=== PATIENT | male | born 1935 | race African-American/Black ===

== ENCOUNTER 2017-02-07 12:40 | Observation (INO) | payer MEDICARE, OTHER ==
[~2017-02-07] VITALS: Ht 185.4 cm; Wt 81.6 kg
[~2017-02-07 12:40] MED LIST: AMIO200T33 PO; AMLO5TAB2 PO; ASPI1TAB59 PO; BRIM0.159 LEFTEYE; CARV3.1240 PO; CLON0.1T PO; MONT10TA23 PO; SIMV-8 PO; TRAV0.00; [UNRECOGNIZED DRUG - CODE] PO
[2017-02-07] MEDS ORDERED: SODIUM CHLORIDE 0.9% 1,000 ML IVB ONE (13:22)
[2017-02-07] MEDS ORDERED: PANTOPRAZOLE SODIUM 40 MG/10 ML VIAL IV STA (13:22)
[2017-02-07] MEDS ORDERED: ONDANSETRON HCL 4 MG/2 ML VIAL IV ONE (13:30)
[2017-02-07] MEDS ORDERED: HYDROmorphone HCL 2 MG/ML VL IV ONE (13:30)
[2017-02-07 14:02] VITALS: BP 125/65
[2017-02-07 14:08] LABS: Basophils # (auto) 0 uL; Basophils % (auto) 0.3 % (0.0-2.0); CONDITION Y; Eosinophils # (auto) 0.4 uL; Eosinophils % (auto) 3.2 % (0.0-7.0); Hematocrit 30.3 % (41.0-53.0); Hemoglobin 10.2 g/dL (13.5-17.5); Lymphocytes # (auto) 1.4 uL; Lymphocytes % (auto) 12.4 % (10.0-50.0); Mean Corpuscular Hemoglobin 28.8 pg (28.0-32.0); Mean Corpuscular Hgb Conc. 33.8 g/dL (32.0-36.0); Mean Corpuscular Volume 85.3 fL (80.0-100.0); Mean Platelet Volume 7.3 fL (7.4-10.4); Monocytes # (auto) 0.8 uL; Monocytes % (auto) 7.2 % (0.0-12.0); Neutrophils # (auto) 8.6 uL; Neutrophils % (auto) 76.9 % (37.0-80.0); Platelet Count (auto) 329 10^3/uL (140-450); Red Cell Distribution Width 17.5 % (11.6-16.0); SUSPECT SEE PRINTOUT; White Blood Cell 11.1 10^3/uL (4.4-10.8)
[2017-02-07 14:40] LABS: Albumin 2.8 g/dL (3.4-5.0); BUN/Creatinine Ratio 20.8; Bilirubin, Total 0.6 mg/dL (0.2-1.0); Calcium 10.2 mg/dL (8.5-10.1); Magnesium 2.7 mg/dL (1.6-2.6); Potassium 4.4 mmol/L (3.5-5.1); Total Protein 7.2 g/dL (6.4-8.2)
== END 2017-02-07 17:24 | disposition home or self-care (01) | DRG 690 ==
LOC: EDBD 12:40 → ER 12:52 → OVERFLOW 13:24 → ER 17:24
PROVIDERS: ADMIT Family Medicine; ATTEND Family Medicine
DX: N39.0 Urinary tract infection, site not specified (principal); I13.0 Hypertensive heart and chronic kidney disease with heart failure and stage 1 through stage 4 chronic kidney disease, or unspecified chronic kidney disease; I50.9 Heart failure, unspecified; N18.9 Chronic kidney disease, unspecified; Z95.1 Presence of aortocoronary bypass graft; M51.36 Other intervertebral disc degeneration, lumbar region; Z93.1 Gastrostomy status; I25.2 Old myocardial infarction
CPT/HCPCS: 36415; 74176; 80053; 82150; 83690; 83735; 85025; 96361; 96374; 96375; 99281; C9113; G0378; J1170; J2405; J7030

== ENCOUNTER → 2017-06-03 | Outpatient (CLI) | payer MEDICARE, OTHER ==
[2017-06-03 10:09] LABS: Basophils # (auto) 0 uL; Basophils % (auto) 0.5 % (0.0-2.0); Eosinophils # (auto) 0.3 uL; Hematocrit 35.3 % (41.0-53.0); Hemoglobin 11.7 g/dL (13.5-17.5); Lymphocytes # (auto) 1.7 uL; Mean Corpuscular Hemoglobin 28.7 pg (28.0-32.0); Mean Corpuscular Hgb Conc. 33.2 g/dL (32.0-36.0); Mean Corpuscular Volume 86.4 fL (80.0-100.0); Monocytes # (auto) 0.4 uL; Monocytes % (auto) 6.4 % (0.0-12.0); Neutrophils # (auto) 3.2 uL; Neutrophils % (auto) 58.1 % (37.0-80.0); Nucleated Red Blood Cells % 0.1 %; Platelet Count (auto) 177 10^3/uL (140-450); Red Cell Distribution Width 14.2 % (11.8-14.3); White Blood Cell 5.5 10^3/uL (4.4-10.8)
[2017-06-03 10:46] LABS: Urine Bilirubin Negative (Negative); Urine Blood Negative /uL (Negative); Urine Color Yellow (Yellow); Urine Glucose Normal (Normal); Urine Ketone Negative (Negative); Urine Nitrite POSITIVE (Negative); Urine RBC 7 /hpf (0 - 3); Urine Urobilinogen Normal (Negative); Urine pH 5.5 (5.0-8.0)
[2017-06-03 11:11] LABS: Temperature: 24.1 C (20.0-25.0)
[2017-06-03 11:17] LABS: Albumin 3.5 g/dL (3.4-5.0); Bilirubin, Total 0.9 mg/dL (0.2-1.0); Calcium 9.4 mg/dL (8.5-10.1); Potassium 4.2 mmol/L (3.5-5.1); Total Protein 7.4 g/dL (6.4-8.2)
== END | disposition home or self-care (01) ==
LOC: LAB 09:14
PROVIDERS: ATTEND Nurse Practitioner
DX: I13.0 Hypertensive heart and chronic kidney disease with heart failure and stage 1 through stage 4 chronic kidney disease, or unspecified chronic kidney disease (principal); N18.9 Chronic kidney disease, unspecified; I50.9 Heart failure, unspecified; Z95.1 Presence of aortocoronary bypass graft; Z79.899 Other long term (current) drug therapy
CPT/HCPCS: 36415; 80053; 80061; 81001; 82306; 82607; 82746; 83036; 84443; 85025

== ENCOUNTER → 2017-08-14 | Outpatient (CLI) | payer MEDICARE, OTHER ==
[2017-08-14 09:43] LABS: Albumin 4.2 g/dL (3.4-5.0); BUN/Creatinine Ratio 24.7; Bilirubin, Total 0.6 mg/dL (0.2-1.0); Calcium 9.9 mg/dL (8.5-10.1); Potassium 4.6 mmol/L (3.5-5.1); Total Protein 7.6 g/dL (6.4-8.2)
== END | disposition home or self-care (01) ==
LOC: LAB 08:50
PROVIDERS: ATTEND Internal Medicine Cardiovascular Disease
DX: I13.0 Hypertensive heart and chronic kidney disease with heart failure and stage 1 through stage 4 chronic kidney disease, or unspecified chronic kidney disease (principal); N18.9 Chronic kidney disease, unspecified; I50.9 Heart failure, unspecified
CPT/HCPCS: 36415; 80053

== ENCOUNTER → 2017-08-21 | Outpatient (CLI) | payer MEDICARE, OTHER ==
[2017-08-21 15:53] LABS: BUN/Creatinine Ratio 22.8; Calcium 9.6 mg/dL (8.5-10.1); Potassium 4.3 mmol/L (3.5-5.1)
== END | disposition home or self-care (01) ==
LOC: LAB 14:03
PROVIDERS: ATTEND Internal Medicine Cardiovascular Disease
DX: I25.10 Atherosclerotic heart disease of native coronary artery without angina pectoris (principal); I50.22 Chronic systolic (congestive) heart failure
CPT/HCPCS: 36415; 80048

== ENCOUNTER → 2018-01-01 | Outpatient (CLI) | payer MEDICARE, OTHER ==
[2018-01-01 08:47] LABS: BUN/Creatinine Ratio 17.9; Calcium 9.3 mg/dL (8.5-10.1); Potassium 4.9 mmol/L (3.5-5.1)
== END | disposition home or self-care (01) ==
LOC: LAB 07:44
PROVIDERS: ATTEND Internal Medicine Cardiovascular Disease
DX: I25.10 Atherosclerotic heart disease of native coronary artery without angina pectoris (principal); I13.0 Hypertensive heart and chronic kidney disease with heart failure and stage 1 through stage 4 chronic kidney disease, or unspecified chronic kidney disease; N18.9 Chronic kidney disease, unspecified; I50.22 Chronic systolic (congestive) heart failure
CPT/HCPCS: 36415; 80048; 83880

== ENCOUNTER → 2018-01-26 | Outpatient (CLI) | payer MEDICARE, OTHER ==
[2018-01-26 14:05] LABS: Basophils # (auto) 0 uL; Basophils % (auto) 0.4 % (0.0-2.0); Eosinophils # (auto) 0.2 uL; Eosinophils % (auto) 2.7 % (0.0-7.0); Hematocrit 36.3 % (41.0-53.0); Hemoglobin 12.1 g/dL (13.5-17.5); Lymphocytes # (auto) 2.4 uL; Lymphocytes % (auto) 39.3 % (10.0-50.0); Mean Corpuscular Hemoglobin 29.5 pg (28.0-32.0); Mean Corpuscular Hgb Conc. 33.4 g/dL (32.0-36.0); Mean Corpuscular Volume 88.3 fL (80.0-100.0); Monocytes # (auto) 0.4 uL; Monocytes % (auto) 6.8 % (0.0-12.0); Neutrophils # (auto) 3.1 uL; Neutrophils % (auto) 50.8 % (37.0-80.0); Nucleated Red Blood Cells % 0.2 %; Platelet Count (auto) 150 10^3/uL (140-450); Red Blood Cells 4.11 10^6/uL (4.5-5.90); Red Cell Distribution Width 14.4 % (11.8-14.3); White Blood Cell 6.2 10^3/uL (4.4-10.8)
[2018-01-26 15:14] LABS: BUN/Creatinine Ratio 19.2; Calcium 9.2 mg/dL (8.5-10.1); Potassium 4.6 mmol/L (3.5-5.1)
== END | disposition home or self-care (01) ==
LOC: LAB 13:48
PROVIDERS: ATTEND Family Medicine
DX: N17.9 Acute kidney failure, unspecified (principal)
CPT/HCPCS: 36415; 80048; 84075; 85025

== ENCOUNTER → 2018-04-06 | Outpatient (CLI) | payer MEDICARE, OTHER ==
[2018-04-06 11:18] LABS: Basophils # (auto) 0 uL; Basophils % (auto) 0.6 % (0.0-2.0); Eosinophils # (auto) 0.2 uL; Eosinophils % (auto) 3.4 % (0.0-7.0); Hematocrit 36.8 % (41.0-53.0); Hemoglobin 12.4 g/dL (13.5-17.5); Lymphocytes # (auto) 2.3 uL; Lymphocytes % (auto) 44.4 % (10.0-50.0); Mean Corpuscular Hemoglobin 28.9 pg (28.0-32.0); Mean Corpuscular Hgb Conc. 33.6 g/dL (32.0-36.0); Monocytes # (auto) 0.3 uL; Monocytes % (auto) 6.2 % (0.0-12.0); Neutrophils # (auto) 2.3 uL; Neutrophils % (auto) 45.4 % (37.0-80.0); Nucleated Red Blood Cells % 0.1 %; Platelet Count (auto) 163 10^3/uL (140-450); Red Blood Cells 4.28 10^6/uL (4.5-5.90); Red Cell Distribution Width 15.8 % (11.8-14.3); White Blood Cell 5.1 10^3/uL (4.4-10.8)
[2018-04-06 11:32] LABS: Urine Bacteria NONE SEEN /hpf (None Seen); Urine Blood Negative /uL (Negative); Urine Mucus FEW (None Seen); Urine WBC 19 /hpf (0 - 3)
[2018-04-06 13:01] LABS: Albumin 3.7 g/dL (3.4-5.0); BUN/Creatinine Ratio 23.9; Bilirubin, Total 0.6 mg/dL (0.2-1.0); Calcium 9.3 mg/dL (8.5-10.1); Potassium 4.6 mmol/L (3.5-5.1); Total Protein 7.2 g/dL (6.4-8.2)
== END | disposition home or self-care (01) ==
LOC: LAB 09:54
PROVIDERS: ATTEND Nurse Practitioner
DX: E78.5 Hyperlipidemia, unspecified (principal); J18.9 Pneumonia, unspecified organism; I13.0 Hypertensive heart and chronic kidney disease with heart failure and stage 1 through stage 4 chronic kidney disease, or unspecified chronic kidney disease; N18.3 Chronic kidney disease, stage 3 (moderate); I50.9 Heart failure, unspecified; E78.00 Pure hypercholesterolemia, unspecified; Z79.82 Long term (current) use of aspirin; Z79.899 Other long term (current) drug therapy
CPT/HCPCS: 36415; 80053; 81001; 85025

== ENCOUNTER 2018-06-25 04:39 | Inpatient (IN) | payer MEDICARE, OTHER ==
[~2018-06-25] VITALS: Ht 167.6 cm; Wt 98.0 kg
[~2018-06-25 04:39] MED LIST changes: +AMLO5TAB13 PO; -AMLO5TAB2 PO
[2018-06-25 05:36] LABS: Basophils # (auto) 0 uL; Basophils % (auto) 0.2 % (0.0-2.0); Eosinophils # (auto) 0.1 uL; Eosinophils % (auto) 1.2 % (0.0-7.0); Hematocrit 37.3 % (41.0-53.0); Hemoglobin 12.5 g/dL (13.5-17.5); Lymphocytes # (auto) 1.2 uL; Lymphocytes % (auto) 20.5 % (10.0-50.0); Mean Corpuscular Hemoglobin 29.3 pg (28.0-32.0); Mean Corpuscular Hgb Conc. 33.6 g/dL (32.0-36.0); Mean Corpuscular Volume 87.3 fL (80.0-100.0); Monocytes # (auto) 0.3 uL; Monocytes % (auto) 5.5 % (0.0-12.0); Neutrophils # (auto) 4.2 uL; Neutrophils % (auto) 72.6 % (37.0-80.0); Platelet Count (auto) 129 10^3/uL (140-450); Red Blood Cells 4.27 10^6/uL (4.5-5.90); Red Cell Distribution Width 13.9 % (11.8-14.3); White Blood Cell 5.8 10^3/uL (4.4-10.8)
[2018-06-25 05:52] LABS: Alanine Aminotransferase 125 U/L (16-61); Albumin 3.8 g/dL (3.4-5.0); Anion Gap 9 (5-15); Aspartate Aminotransferase 156 U/L (15-37); BUN/Creatinine Ratio 18.4; Blood Urea Nitrogen 26 mg/dL (7-18); Calcium 9.2 mg/dL (8.5-10.1); Carbon Dioxide 26 mmol/L (21-32); Chloride 107 mmol/L (98-107); GFR African American 62 mL/min; GFR Non-African American 51 mL/min; Glucose 93 mg/dL (74-106); Magnesium 2.5 mg/dL (1.6-2.6); Potassium 4.2 mmol/L (3.5-5.1); Sodium 142 mmol/L (136-145)
[2018-06-25 06:02] LABS: Alkaline Phosphatase 143 U/L (45-117); Bilirubin, Total 1.6 mg/dL (0.2-1.0); Lipase 13301 U/L (73-393); Total Protein 7.1 g/dL (6.4-8.2)
[2018-06-25 07:34] LABS: Urine Bacteria NONE SEEN /hpf (None Seen); Urine Blood Negative /uL (Negative); Urine Mucus FEW (None Seen); Urine WBC 88 /hpf (0 - 3)
[2018-06-25] MEDS ORDERED: LEVOFLOXACIN 500MG 100 ML IV ONE (07:45)
[2018-06-25] MEDS ORDERED: NITROGLYCERIN 0.4 MG SL TAB SL PRN (08:15)
[2018-06-25] MEDS ORDERED: PANTOPRAZOLE 40 MG/10 ML VIAL IV ONE (08:15)
[2018-06-25] MEDS ORDERED: MORPHINE SULFATE 4 MG/ML SYR/VIAL IV PRN (08:15)
[2018-06-25] MEDS: SODIUM CHLORIDE 0.9% 1,000 ML IV SCH ×3 (08:38→22:00)
[2018-06-25] MEDS ORDERED: cefTRIAXone 1GM/50ML D5W 50 ML IV ONE (09:45)
[2018-06-25] MEDS ORDERED: LEVOFLOXACIN 500MG 100 ML IV SCH (10:00)
[2018-06-25 10:55] VITALS: BP 150/72
[2018-06-25] MEDS: PANTOPRAZOLE 40 MG/10 ML VIAL IV SCH (12:18)
[2018-06-25] MEDS: metroNIDAZOLE 500MG/100ML 100 ML IV SCH ×2 (13:36→21:50)
[2018-06-25] MEDS ORDERED: amLODIPine BESYLATE 5 MG TAB PO ONE (14:15)
[2018-06-25 15:03] LABS: INR 1.03 (0.9-1.15)
[2018-06-25] MEDS ORDERED: ESOM40CA39 PO (15:28)
[2018-06-25 17:11] VITALS: BP 145/75
[2018-06-25] MEDS: amLODIPine BESYLATE 5 MG TAB PO SCH (21:52)
[2018-06-25 22:00] VITALS: BP 136/74
[2018-06-26] MEDS: SODIUM CHLORIDE 0.9% 1,000 ML IV SCH ×2 (04:07→11:22)
[2018-06-26 05:00] VITALS: BP 111/47
[2018-06-26] MEDS: metroNIDAZOLE 500MG/100ML 100 ML IV SCH ×3 (05:54→21:52)
[2018-06-26 06:10] LABS: Potassium 4.1 mmol/L (3.5-5.1)
[2018-06-26 06:19] LABS: Basophils # (auto) 0 uL; Basophils % (auto) 0.4 % (0.0-2.0); Eosinophils # (auto) 0.1 uL; Eosinophils % (auto) 2.7 % (0.0-7.0); Hematocrit 36.8 % (41.0-53.0); Hemoglobin 12.5 g/dL (13.5-17.5); Lymphocytes # (auto) 1.7 uL; Lymphocytes % (auto) 30.7 % (10.0-50.0); Mean Corpuscular Hemoglobin 29.7 pg (28.0-32.0); Mean Corpuscular Hgb Conc. 33.9 g/dL (32.0-36.0); Mean Corpuscular Volume 87.6 fL (80.0-100.0); Monocytes # (auto) 0.3 uL; Neutrophils # (auto) 3.3 uL; Neutrophils % (auto) 60.2 % (37.0-80.0); Nucleated Red Blood Cells % 0.1 %; Platelet Count (auto) 120 10^3/uL (140-450); Red Cell Distribution Width 14.4 % (11.8-14.3); White Blood Cell 5.4 10^3/uL (4.4-10.8)
[2018-06-26 06:27] LABS: Albumin 3.4 g/dL (3.4-5.0); BUN/Creatinine Ratio 15.4
[2018-06-26 06:31] LABS: Bilirubin, Total 0.9 mg/dL (0.2-1.0); Total Protein 6.6 g/dL (6.4-8.2)
[2018-06-26 07:13] LABS: Cholesterol 110 mg/dL (< 200); Triglycerides 121 mg/dL (< 150)
[2018-06-26 07:16] LABS: HDL Cholesterol 38 mg/dL (40-59); LDL Cholesterol 63 mg/dL (< 100)
[2018-06-26 08:30] VITALS: BP 146/73
[2018-06-26 08:44] VITALS: BP 146/73
[2018-06-26] MEDS: PANTOPRAZOLE 40 MG/10 ML VIAL IV SCH (10:08)
[2018-06-26] MEDS: cefTRIAXone 1GM/50ML D5W 50 ML IV SCH (10:08)
[2018-06-26] MEDS: amLODIPine BESYLATE 5 MG TAB PO SCH (10:09)
[2018-06-26] MEDS ORDERED: ONDANSETRON HCL 4 MG/2 ML VIAL IV PRN (11:00)
[2018-06-26] MEDS ORDERED: SACUBITRIL-VALSARTAN 24mg/26mg TAB PO ONE (11:00)
[2018-06-26] MEDS ORDERED: MORPHINE SULFATE 4 MG/ML SYR/VIAL IV PRN (11:00)
[2018-06-26] MEDS ORDERED: HYDROcodone-ACET 5/325MG TAB PO PRN (11:00)
[2018-06-26] MEDS ORDERED: CARVEDILOL 3.125 MG TAB PO ONE (11:15)
[2018-06-26 13:07] VITALS: BP 159/60
[2018-06-26 17:00] VITALS: BP 135/75
[2018-06-26] MEDS: CARVEDILOL 3.125 MG TAB PO SCH (21:53)
[2018-06-26] MEDS: SACUBITRIL-VALSARTAN 24mg/26mg TAB PO SCH (21:55)
[2018-06-26 22:00] VITALS: BP 129/61
[2018-06-27 05:00] VITALS: BP 133/61
[2018-06-27] MEDS: SODIUM CHLORIDE 0.9% 1,000 ML IV SCH ×2 (05:31→15:29)
[2018-06-27] MEDS: metroNIDAZOLE 500MG/100ML 100 ML IV SCH ×3 (05:32→22:41)
[2018-06-27 05:50] LABS: Basophils # (auto) 0 uL; Basophils % (auto) 0.4 % (0.0-2.0); Eosinophils # (auto) 0.2 uL; Eosinophils % (auto) 5.1 % (0.0-7.0); Hematocrit 35.2 % (41.0-53.0); Hemoglobin 11.9 g/dL (13.5-17.5); Lymphocytes # (auto) 1.3 uL; Lymphocytes % (auto) 29.5 % (10.0-50.0); Mean Corpuscular Hemoglobin 29.5 pg (28.0-32.0); Mean Corpuscular Hgb Conc. 33.8 g/dL (32.0-36.0); Mean Corpuscular Volume 87.4 fL (80.0-100.0); Monocytes # (auto) 0.3 uL; Monocytes % (auto) 7.2 % (0.0-12.0); Neutrophils # (auto) 2.5 uL; Neutrophils % (auto) 57.8 % (37.0-80.0); Nucleated Red Blood Cells % 0.1 %; Platelet Count (auto) 127 10^3/uL (140-450); Red Blood Cells 4.03 10^6/uL (4.5-5.90); Red Cell Distribution Width 14.2 % (11.8-14.3); White Blood Cell 4.3 10^3/uL (4.4-10.8)
[2018-06-27 06:07] LABS: Potassium 3.9 mmol/L (3.5-5.1)
[2018-06-27 06:13] LABS: Albumin 3.3 g/dL (3.4-5.0); Bilirubin, Total 0.8 mg/dL (0.2-1.0); Calcium 8.8 mg/dL (8.5-10.1); Total Protein 6.3 g/dL (6.4-8.2)
[2018-06-27 08:19] VITALS: BP 134/74
[2018-06-27] MEDS: CARVEDILOL 3.125 MG TAB PO SCH ×3 (09:12→22:41)
[2018-06-27] MEDS: PANTOPRAZOLE 40 MG/10 ML VIAL IV SCH (09:12)
[2018-06-27] MEDS: SACUBITRIL-VALSARTAN 24mg/26mg TAB PO SCH ×2 (09:12→22:40)
[2018-06-27] MEDS: cefTRIAXone 1GM/50ML D5W 50 ML IV SCH (09:12)
[2018-06-27] MEDS ORDERED: MAGNESIUM OXIDE 400 MG TAB PO ONE (11:15)
[2018-06-27 12:11] VITALS: BP 136/67
[2018-06-27 16:51] VITALS: BP 148/78
[2018-06-27 21:58] VITALS: BP 153/63
[2018-06-28] MEDS: SODIUM CHLORIDE 0.9% 1,000 ML IV SCH ×2 (03:00→16:44)
[2018-06-28 04:55] VITALS: BP 156/61
[2018-06-28] MEDS: metroNIDAZOLE 500MG/100ML 100 ML IV SCH ×3 (05:44→21:53)
[2018-06-28 06:29] LABS: Potassium 3.7 mmol/L (3.5-5.1)
[2018-06-28 06:36] LABS: Albumin 3.4 g/dL (3.4-5.0); BUN/Creatinine Ratio 9.5; Bilirubin, Total 0.8 mg/dL (0.2-1.0); Calcium 8.8 mg/dL (8.5-10.1); Total Protein 6.6 g/dL (6.4-8.2)
[2018-06-28 08:24] VITALS: BP 154/49
[2018-06-28] MEDS: PANTOPRAZOLE 40 MG/10 ML VIAL IV SCH (09:54)
[2018-06-28] MEDS: cefTRIAXone 1GM/50ML D5W 50 ML IV SCH (09:54)
[2018-06-28] MEDS: CARVEDILOL 3.125 MG TAB PO SCH ×2 (09:55→21:53)
[2018-06-28] MEDS: SACUBITRIL-VALSARTAN 24mg/26mg TAB PO SCH ×2 (09:56→21:52)
[2018-06-28] MEDS: MAGNESIUM OXIDE 400 MG TAB PO SCH (09:56)
[2018-06-28 12:06] VITALS: BP 152/69
[2018-06-28 16:49] VITALS: BP 121/69
[2018-06-28 21:59] VITALS: BP 144/84
[2018-06-29 05:00] VITALS: BP 146/56
[2018-06-29] MEDS: metroNIDAZOLE 500MG/100ML 100 ML IV SCH ×2 (05:47→14:00)
[2018-06-29] MEDS: SODIUM CHLORIDE 0.9% 1,000 ML IV SCH (05:48)
[2018-06-29 08:31] VITALS: BP 149/68
[2018-06-29] MEDS: SACUBITRIL-VALSARTAN 24mg/26mg TAB PO SCH (10:19)
[2018-06-29] MEDS: CARVEDILOL 3.125 MG TAB PO SCH (10:20)
[2018-06-29] MEDS: MAGNESIUM OXIDE 400 MG TAB PO SCH (10:20)
[2018-06-29] MEDS: PANTOPRAZOLE 40 MG/10 ML VIAL IV SCH (10:20)
[2018-06-29] MEDS: cefTRIAXone 1GM/50ML D5W 50 ML IV SCH (10:26)
[2018-06-29 12:11] VITALS: BP 138/64
[2018-06-29 15:32] VITALS: BP 138/64
[2018-06-29 16:44] VITALS: BP 138/85
== END 2018-06-29 17:02 | disposition left against medical advice (07) | DRG 444 ==
LOC: ER 04:39 → TELE 04:40 → TELE-EAST 10:40
PROVIDERS: ADMIT Internal Medicine; ATTEND Internal Medicine
DX: K80.20 Calculus of gallbladder without cholecystitis without obstruction (principal); K85.10 Biliary acute pancreatitis without necrosis or infection; I13.0 Hypertensive heart and chronic kidney disease with heart failure and stage 1 through stage 4 chronic kidney disease, or unspecified chronic kidney disease; I50.22 Chronic systolic (congestive) heart failure; N39.0 Urinary tract infection, site not specified; N18.3 Chronic kidney disease, stage 3 (moderate); D63.8 Anemia in other chronic diseases classified elsewhere; I48.0 Paroxysmal atrial fibrillation; I25.5 Ischemic cardiomyopathy; I25.10 Atherosclerotic heart disease of native coronary artery without angina pectoris; E78.5 Hyperlipidemia, unspecified; K21.9 Gastro-esophageal reflux disease without esophagitis; I35.0 Nonrheumatic aortic (valve) stenosis; Z96.653 Presence of artificial knee joint, bilateral; Z53.21 Procedure and treatment not carried out due to patient leaving prior to being seen by health care provider; R00.1 Bradycardia, unspecified; I44.0 Atrioventricular block, first degree; K57.30 Diverticulosis of large intestine without perforation or abscess without bleeding; Z82.49 Family history of ischemic heart disease and other diseases of the circulatory system; Z93.0 Tracheostomy status; I25.2 Old myocardial infarction; Z95.1 Presence of aortocoronary bypass graft; Z87.01 Personal history of pneumonia (recurrent); Z88.1 Allergy status to other antibiotic agents; Z88.0 Allergy status to penicillin; Z90.49 Acquired absence of other specified parts of digestive tract
CPT/HCPCS: 36415; 71045; 74176; 76705; 78226; 80053; 80061; 81001; 82150; 83605; 83690; 83735; 83880; 84484; 85025; 85379; 85610; 85730; 86850; 86900; 86901; 87040; 93005; 93306; 94761; 96365; 96367; 96375; 97163; C9113; G0378; J0696; J3490

== ENCOUNTER 2025-03-04 11:59 | Emergency (ER) | payer MEDICARE ==
[~2025-03-04] VITALS: Ht 172.7 cm; Wt 89.7 kg
[~2025-03-04 11:59] MED LIST changes: +AMLO1TAB22 PO; -AMLO5TAB13 PO; +ESOM40CA39 PO; -SIMV-8 PO; +SIMV20TA20 PO
--- NOTE | 2025-03-04 13:44 | ED.PDOC ---
History of Present Illness HPI Comments 89-year-old male presents with a chief complaint of headache and neck pain x 1 month. Patient states that he is having right sided headache pain for the past month. Patient reports that he has seen his PCP and an ENT specialist, but has had no relief of symptoms. Patient reports being on antibiotics from his PCP due to possible tooth infection. Chief Complaint: Headache Time Seen by MD: 13:15 Primary Care Provider: LESS Reviewed Notes: Medications, Allergies Allergies: Coded Allergies: Moxifloxacin (Verified Allergy, Unknown, 02/25/18) Penicillins (Verified Allergy, Unknown, 11/11/16) ZOSYN ALREADY GIVEN- [facility]ERGY PHARMACY CLARIFICATION REVIEWED ALLERGY TO PCN WITH PHARMACY, PT STATES THATS HE HAS HAD ALLERGIES SINCE 1948, REACTION WAS COUGH AND DIZZINESS. DISCUSSED WITH PHARMACY DATA ANALYST, STATES TO REVIEW WITH PHYSICAN, PER MD MENA ADMINSTER AND WATCH FOR ADVERSE REACTION OR ALLERGY. Home Meds Reported Medications Esomeprazole Magnesium Trihydr (Nexium) 40 Mg Cap, 1 CAP PO BID, #30 CAP 5 Refills 06/25/18 Clonidine Hydrochloride (Clonidine Hcl) 0.1 Mg Tab, 1 TAB PO BID, #30 TAB 2 Refills 11/20/16 Simvastatin (Simvastatin) 20 Mg Tab, 1 TAB PO HS, #30 TAB 5 Refills 11/20/16 Amiodarone Hcl (Amiodarone Hcl) 200 Mg Tab, 1 TAB PO BID, #90 TAB 1 Refill 11/20/16 Carvedilol (Carvedilol) 3.125 Mg Tab, 6.25 MG PO BID, #60 TAB 3 Refills 11/20/16 Famotidine (HM FAMOTIDINE) 20 Mg Tab, 20 MG PO DAILY, TAB 11/20/16 Aspirin (Ecotrin) 325 Mg Tab, 325 MG PO DAILY, TAB 11/20/16 Amlodipine Besylate (Amlodipine Besylate) 5 Mg Tab, 1 TAB PO DAILY, #30 TAB 5 Refills 11/20/16 Montelukast Sodium (Singulair) 10 Mg Tab, 10 MG PO DAILY, TAB 11/20/16 Brimonidine Tartrate (Brimonidine Tartrate) 0.15 % Alyssia, 1 DROP LEFTEYE BID, DROP 11/13/16 Travoprost (Travatan Z) 0.004 % Cem, #5 3/27/17 Information Source: Patient Mode of Arrival: Wheelchair Severity: Moderate Timing: Weeks Duration: Intermittent Prehospital treatment: None Past Medical History PAST MEDICAL HISTORY: Anemia, CHF, CKF, GERD, High Lipids, HTN, SD Surgical History: CABG Family History Family History: Unobtainable Social History Smoker: Non-Smoker Alcohol: Denies ETOH Use Drugs: Denies Drug Use Lives In: Home Constitutional: denies: chills, diaphoresis, fatigue, fever, malaise, sweats, weakness, others EENTM: denies: blurred vision, double vision, ear bleeding, ear discharge, ear drainage, ear pain, ear ringing, eye pain, eye redness, hearing loss, mouth pain, mouth swelling, nasal discharge, nose bleeding, nose congestion, nose pain, photophobia, tearing, throat pain, throat swelling, voice changes, others Respiratory: denies: cough, hemoptysis, orthopnea, SOB at rest, shortness of breath, SOB with excertion, stridor, wheezing, others Cardiovascular: denies: chest pain, dizzy spells, diaphoresis, Dyspnea on exertion, edema, irregular heart beat, left arm pain, lightheadedness, pal pitations, PND, syncope, others Gastrointestinal: denies: abdomen distended, abdominal pain, blood streaked bowels, constipated, diarrhea, dysphagia, difficulty swallowing, hematemesis, melena, nausea, poor appetite, poor fluid intake, rectal bleeding, rectal pain, vomiting, others Genitourinary: denies: burning, dysuria, flank pain, frequency, hematuria, incontinence, penile discharge, penile sore, pain, testicle pain, testicle swelling, urgency, others Neurological: reports: headache; denies: dizziness, fainting, left sided numbness, left sided weakness, numbness, paresthesia, pre-existing deficit, right sided numbness, right sided weakness, seizure, speech problems, tingling, tremors, weakness, others Musculoskeletal: reports: neck pain; denies: back pain, gout, joint pain, joint swelling, muscle pain, muscle stiffness, others Integumetry: denies: bruises, change in color, change in hair/nails, dryness, laceration, lesions, lumps, rash, wounds, others Allergic/Immunocompromised: denies: Difficulty Healing, Frequent Infections, Hives, Itching, others Hematologic/Lymphatic: denies: anemia, blood clots, easy bleeding, easy bruising, swollen glands, others Endocrine: denies: excessive hunger, excessive sweating, excessive thirst, excessive urination, flushing, intolerance to cold, intolerance to heat, unexplained weight gain, unexplained weight loss, others Psychiatric: denies: anxiety, bipolar disorder, depression, hopeless, panic disorder, schizophrenia, sleepless, suicidal, others All Other Systems: Reviewed and Negative Physical Exam General Appearance: No Apparent Distress, Normal HEENT: Normal ENT Inspection, Pharynx Normal, TMs Normal Neck: Full Range of Motion, Non-Tender, Normal, Normal Inspection Respiratory: Chest Non-Tender, Lungs Clear, No Accessory Muscle Use, No Respira tory Distress, Normal Breath Sounds Cardiovascular: No Edema, No JVD, No Murmur, No Gallop, Normal Peripheral Pulses, Regular Rate/Rhythm Breast Exam: Deferred Gastrointestinal: No Organomegaly, Non Tender, No Pulsatile Mass, Normal Bowel Sounds, Soft Genitalia: Deferred Pelvic: Deferred Rectal: Deferred Extremities: No calf tenderness, Normal capillary refill, Normal inspection, Normal range of motion, Non-tender, No pedal edema Musculoskeletal : Apperance: Normal Neurologic: Alert, home improvement contractor II-XII nml as Tested, No Motor Deficits, Normal Affect, Normal Mood, No Sensory Deficits Cerebellar Function: Normal Reflexes: Normal Skin: Dry, Normal Color, Warm Lymphatic: No Adenopathy Was a procedure done? Was a procedure done?: No Differential Dx Considerations may include: ACS, CVA, viral syndrome, migraine X-Ray, Labs, Meds, VS Vital Signs Date Time Temp Pulse Resp B/P (MAP) Pulse Ox O2 Delivery O2 Flow Rate FiO2 03/04/25 14:27 98.2 78 16 157/71 (99) 98 98.2 03/04/25 14:13 98.1 84 18 115/72 (86) 95 98.1 03/04/25 14:13 84 18 95 Room Air 03/04/25 12:34 98.0 85 17 131/71 (91) 97 98.0 Current Medications Medications (Trade) Dose Ordered Sig/Francisco Route Start Time Stop Time Status Last Admin Acetaminophen (Tylenol Tablet) 650 mg ONCE ONCE PO 03/04/25 14:00 03/04/25 14:01 DC 03/04/25 14:36 Metoclopramide HCl (Reglan Injection) 10 mg ONCE ONCE IV 03/04/25 14:00 03/04/25 14:01 DC 03/04/25 14:35 Sodium Chloride 1,000 ml @ 1,000 mls/hr Q1H ONCE IV 03/04/25 14:00 03/04/25 14:59 DC 03/04/25 14:35 Time of 1ST Reevaluation: 13:45 Reevaluation 1ST: Unchanged Patient Education/Counseling: Diagnosis, Treatment Family Education/Counseling: No Family Present SEPSIS Sepsis Screen Date sepsis recognized/suspect: Mar 04, 2025 Time Sepsis recognized/suspect: 1253 Recent Procedure: No On Antibiotic Therapy: No Respiratory Rate >20: No Heart Rate >90: No Temp<36 C (96.8 F) or >38.3 C: No SBP <90 or MAP <65 mmHG: No New Acute Mental Status Change: No Is the patient on CPAP, BIPAP,: No Physician Orders Head Without Contrast (03/04/25 13:47) Saline Lock (03/04/25 14:30) Vital Signs Date Time Temp Pulse Resp B/P (MAP) Pulse Ox O2 Delivery O2 Flow Rate FiO2 03/04/25 14:27 98.2 78 16 157/71 (99) 98 98.2 03/04/25 14:13 98.1 84 18 115/72 (86) 95 98.1 03/04/25 14:13 84 18 95 Room Air 03/04/25 12:34 98.0 85 17 131/71 (91) 97 98.0 Medications Medications Dose Ordered Sig/Francisco Route Start Time Stop Time Status Last Admin Dose Admin Acetaminophen 650 mg ONCE ONCE PO 03/04/25 14:00 03/04/25 14:01 DC 03/04/25 14:36 Metoclopramide HCl 10 mg ONCE ONCE IV 03/04/25 14:00 03/04/25 14:01 DC 03/04/25 14:35 Sodium Chloride 1,000 ml @ 1,000 mls/hr Q1H ONCE IV 03/04/25 14:00 03/04/25 14:59 DC 03/04/25 14:35 Departure 1 Departure Time of Disposition: 15:20 (Patient likely with a migraine. Patient is feeling a bit better. 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 You received medications in the ER. You can take tylenol and motrin as needed for pain. You should stay well rested and well hydrated. It is important to follow up with your regular doctor within one week. If your symptoms worsen or you have any other concerns then please return to the ER. Critical Care Note Critical Care Time?: No Stability Stability form required: No Heart Score Heart Score: Heart Score Response (Comments) Value History N/A 0 EKG N/A 0 Age N/A 0 Risk Factors N/A 0 Troponin N/A 0 Total 0 I personally scribed for RADHA SARAVIA MD ([email or web address]) on 03/04/25 at 13:44. Electronically submitted by Camilo Bowie ([email or web address]). RADHA SARAVIA MD Mar 04, 2025 13:44
--- NOTE | 2025-03-04 14:23 | DVH ---
CT HEAD WITHOUT CONTRAST INDICATION: migraine EXAM DATE: 03/04/2025 01:51 PM COMPARISON: None RADIATION DOSE: CTDIvol: 60.09 mGy, DLP: 1063.95 mGy*cm PROCEDURE: CT scans of the head were obtained from the vertex to the skull base. Sagittal and coronal reconstructions were provided. All CT scans at this medical facility are performed using dose modulation techniques as appropriate t o a performed exam including the following: Automated exposure control was utilized; adjustment of th e MA and/or KV according to patient size; and use of iterative reconstruction technique. FINDINGS: There is sulcal and ventricular prominence. The brainshows normal morphology and palencia-whi te matter differentiation, without intracranial hemorrhage, extra-axial fluid collection, mass effect or acute large vessel infarct. The ventricles are normal in size. The basal cisterns are patent. The skull and visible facial bones are intact. The paranasal sinuses, mastoid air cells and middle ear c avities are well-aerated. The soft tissues of the scalp are unremarkable. IMPRESSION: No acute intracranial abnormality.
[2025-03-04] MEDS: SODIUM CHLORIDE 0.9% 1,000 ML IV ONE (14:35)
[2025-03-04] MEDS: METOCLOPRAMIDE HCL 5MG/ml INJ 2ml VIAL IV ONE (14:35)
[2025-03-04] MEDS: ACETAMINOPHEN 325 MG TAB PO ONE (14:36)
[2025-03-04 15:31] VITALS: BP 152/76; PULSE 89; RESP 16; TEMP 97.7; O2SAT 99
== END 2025-03-04 15:32 | disposition home or self-care (01) ==
LOC: ER 11:59
DX: G43.909 Migraine, unspecified, not intractable, without status migrainosus (principal); I11.0 Hypertensive heart disease with heart failure; I50.9 Heart failure, unspecified; K21.9 Gastro-esophageal reflux disease without esophagitis; E78.5 Hyperlipidemia, unspecified; D64.9 Anemia, unspecified; Z79.82 Long term (current) use of aspirin; Z79.899 Other long term (current) drug therapy; Z88.0 Allergy status to penicillin; Z95.1 Presence of aortocoronary bypass graft; Z88.8 Allergy status to other drugs, medicaments and biological substances
CPT/HCPCS: 70450; 96361; 96374; 99285; J2765; J7030